=== PATIENT | male | born 1950 | race Caucasian/White ===

== ENCOUNTER 2017-10-10 06:00 | Inpatient (IN) ==
[2017-10-15] MEDS ORDERED: ZALEPLON 5 MG CAPSULE PO PRN (09:26)
[2017-10-15] MEDS ORDERED: SODIUM CHLORIDE 0.9% 1,000 ML IV SCH (09:30)
[2017-10-15 12:54] LABS: Basophils % 0.4 % (0.0-0.8); Eosinophils # 0.2 10*3/uL (0.0-0.87); Eosinophils % 2.9 % (0.00-10.9); Hematocrit 28.5 VOL% (42.0-52.0); Hemoglobin 8.9 GM/DL (14.0-18.0); Immature Granulocytes % 0.3 %; Immature Granulocytes Absolute 0.02 #; Lymphocytes # 1.2 10*3/uL (1.4-4.0); Lymphocytes % 17.4 % (21.2-54.2); Mean Corpuscular HGB Conc 31.2 GM/DL (32-36); Mean Corpuscular Hemoglobin 31 PG (27-34); Mean Corpuscular Volume 98.3 FL (87-102); Mean Platelet Volume 10.3 FL (9.6-12.0); Monocytes # 0.6 10*3/uL (0.11-0.8); Neutrophils # 4.9 10*3/uL (1.4-7.4); Platelet Count 214 T/CUMM (130-400); Red Cell Distribution Width 15.7 % (9.3-17.3); White Blood Count 6.8 T/CUMM (4-12)
[2017-10-15 13:05] LABS: INR 3.5
[2017-10-15 13:06] LABS: PT Patient Result 35.7 SECS
[2017-10-15 13:22] LABS: Albumin 3.2 G/DL (3.4-5.0); Bilirubin,Direct 0.19 MG/DL (0.0-0.20); Bilirubin,Indirect 0.6 MG/DL (0.0-1.0); Bilirubin,Total 0.8 MG/DL (0.2-1.0); Calcium 8.5 MG/DL (8.5-10.1); Osmolality,Calculated 286.7 MOS/KG (273-304); Potassium 5.1 MMOL/L (3.5-5.1)
[2017-10-15] MEDS: OXYBUTYNIN 5 MG TABLET PO SCH ×2 (15:14→20:48)
[2017-10-15] MEDS: POTASSIUM CHLORIDE 20 MEQ TABLET PO SCH ×2 (15:14→17:16)
[2017-10-15] MEDS: PANTOPRAZOLE 40 MG VIAL IV SCH (17:16)
[2017-10-15] MEDS ORDERED: PHYTONADIONE 5 MG/5 ML ORAL.SYR PO ONE (18:08)
[2017-10-15] MEDS: CARVEDILOL 6.25 MG TABLET PO SCH (20:48)
[2017-10-15] MEDS: ATORVASTATIN 40 MG TABLET PO SCH (20:48)
[2017-10-15] MEDS: TERAZOSIN 5 MG CAPSULE PO SCH (20:48)
[2017-10-16 06:17] LABS: Basophils % 0.4 % (0.0-0.8); Eosinophils # 0.3 10*3/uL (0.0-0.87); Hematocrit 28.8 VOL% (42.0-52.0); Immature Granulocytes % 0.2 %; Immature Granulocytes Absolute 0.01 #; Lymphocytes # 0.9 10*3/uL (1.4-4.0); Lymphocytes % 16.1 % (21.2-54.2); Mean Corpuscular HGB Conc 31.3 GM/DL (32-36); Mean Corpuscular Hemoglobin 30 PG (27-34); Mean Corpuscular Volume 96.6 FL (87-102); Mean Platelet Volume 10.6 FL (9.6-12.0); Monocytes # 0.7 10*3/uL (0.11-0.8); Monocytes % 12.4 % (1.7-12.7); Neutrophils # 3.7 10*3/uL (1.4-7.4); Neutrophils % 65.9 % (38.7-73.9); Platelet Count 203 T/CUMM (130-400); Red Blood Count 2.98 MC/CUMM (3.8-5.5); Red Cell Distribution Width 15.6 % (9.3-17.3); White Blood Count 5.6 T/CUMM (4-12)
[2017-10-16] MEDS: LEVOTHYROXINE 50 MCG TABLET PO SCH (06:24)
[2017-10-16 06:27] LABS: INR 2.4
[2017-10-16 06:43] LABS: Calcium 8.3 MG/DL (8.5-10.1); Potassium 4.5 MMOL/L (3.5-5.1)
[2017-10-16 06:48] LABS: Risk Ratio 1.76; VLDL CHOLESTEROL 9.6 MG/DL
[2017-10-16] MEDS: ISOSORBIDE MONONITRATE 30 MG TABLET PO SCH (09:20)
[2017-10-16] MEDS: POTASSIUM CHLORIDE 20 MEQ TABLET PO SCH ×2 (09:20→16:42)
[2017-10-16] MEDS: CARVEDILOL 6.25 MG TABLET PO SCH ×2 (09:20→20:26)
[2017-10-16] MEDS: FUROSEMIDE 20 MG TABLET PO SCH (09:20)
[2017-10-16] MEDS: AMIODARONE 200 MG TABLET PO SCH (09:20)
[2017-10-16] MEDS: SPIRONOLACTONE 25 MG TABLET PO SCH (09:20)
[2017-10-16] MEDS: LISINOPRIL 2.5 MG TABLET PO SCH (09:20)
[2017-10-16] MEDS: PANTOPRAZOLE 40 MG VIAL IV SCH (09:21)
[2017-10-16] MEDS: ASPIRIN EC 81 MG TABLET PO SCH (09:21)
[2017-10-16] MEDS: HEPARIN DRIP 25,000 UNITS/500 ML PREMIX IV SCH (09:41)
[2017-10-16] MEDS: FERROUS SULFATE 325 MG TABLET PO SCH (09:42)
[2017-10-16] MEDS: OXYBUTYNIN 5 MG TABLET PO SCH ×3 (09:42→20:36)
[2017-10-16] MEDS: ATORVASTATIN 40 MG TABLET PO SCH (20:26)
[2017-10-16] MEDS: TERAZOSIN 5 MG CAPSULE PO SCH (20:26)
[2017-10-16] MEDS ORDERED: MAGNESIUM CITRATE 300 ML BOTTLE PO ONE (21:00)
[2017-10-17 05:40] LABS: Basophils % 0.6 % (0.0-0.8); Eosinophils # 0.3 10*3/uL (0.0-0.87); Eosinophils % 5.7 % (0.00-10.9); Hematocrit 29.3 VOL% (42.0-52.0); Hemoglobin 9.3 GM/DL (14.0-18.0); Immature Granulocytes % 0.4 %; Immature Granulocytes Absolute 0.02 #; Lymphocytes # 1.1 10*3/uL (1.4-4.0); Lymphocytes % 20.2 % (21.2-54.2); Mean Corpuscular HGB Conc 31.7 GM/DL (32-36); Mean Corpuscular Hemoglobin 30 PG (27-34); Mean Corpuscular Volume 95.8 FL (87-102); Mean Platelet Volume 10.3 FL (9.6-12.0); Monocytes # 0.6 10*3/uL (0.11-0.8); Monocytes % 11.9 % (1.7-12.7); Neutrophils # 3.2 10*3/uL (1.4-7.4); Neutrophils % 61.2 % (38.7-73.9); Platelet Count 188 T/CUMM (130-400); Red Blood Count 3.06 MC/CUMM (3.8-5.5); Red Cell Distribution Width 15.6 % (9.3-17.3); White Blood Count 5.3 T/CUMM (4-12)
[2017-10-17 05:47] LABS: INR 1.3; PT Patient Result 13.9 SECS
[2017-10-17] MEDS: LEVOTHYROXINE 50 MCG TABLET PO SCH (06:12)
[2017-10-17] MEDS: BISACODYL 5 MG TABLET PO SCH ×3 (06:12→23:19)
[2017-10-17 06:18] LABS: Calcium 8.4 MG/DL (8.5-10.1); Osmolality,Calculated 293.8 MOS/KG (273-304); Potassium 4.5 MMOL/L (3.5-5.1)
[2017-10-17] MEDS: FERROUS SULFATE 325 MG TABLET PO SCH (09:45)
[2017-10-17] MEDS: CARVEDILOL 6.25 MG TABLET PO SCH ×2 (09:45→21:27)
[2017-10-17] MEDS: LISINOPRIL 2.5 MG TABLET PO SCH (09:45)
[2017-10-17] MEDS: SPIRONOLACTONE 25 MG TABLET PO SCH (09:45)
[2017-10-17] MEDS: AMIODARONE 200 MG TABLET PO SCH (09:45)
[2017-10-17] MEDS: FUROSEMIDE 20 MG TABLET PO SCH (09:46)
[2017-10-17] MEDS: OXYBUTYNIN 5 MG TABLET PO SCH ×3 (09:46→21:26)
[2017-10-17] MEDS: PANTOPRAZOLE 40 MG VIAL IV SCH (09:46)
[2017-10-17] MEDS: ASPIRIN EC 81 MG TABLET PO SCH (09:46)
[2017-10-17] MEDS: ISOSORBIDE MONONITRATE 30 MG TABLET PO SCH (09:46)
[2017-10-17] MEDS: POTASSIUM CHLORIDE 20 MEQ TABLET PO SCH ×3 (09:46→17:33)
[2017-10-17] MEDS: HEPARIN DRIP 25,000 UNITS/500 ML PREMIX IV SCH (10:21)
[2017-10-17] MEDS ORDERED: POLYETHYLENE GLYCOL POWDER 255 GM BOTTLE PO ONE (16:00)
[2017-10-17] MEDS: TERAZOSIN 5 MG CAPSULE PO SCH (21:26)
[2017-10-17] MEDS: ATORVASTATIN 40 MG TABLET PO SCH (21:26)
[2017-10-18 06:20] LABS: Basophils % 0.5 % (0.0-0.8); Eosinophils # 0.3 10*3/uL (0.0-0.87); Eosinophils % 5.2 % (0.00-10.9); Hematocrit 31.6 VOL% (42.0-52.0); Hemoglobin 9.9 GM/DL (14.0-18.0); Immature Granulocytes % 0.5 %; Immature Granulocytes Absolute 0.03 #; Lymphocytes # 1.2 10*3/uL (1.4-4.0); Mean Corpuscular HGB Conc 31.3 GM/DL (32-36); Mean Corpuscular Hemoglobin 30 PG (27-34); Mean Corpuscular Volume 95.8 FL (87-102); Mean Platelet Volume 10.7 FL (9.6-12.0); Monocytes # 0.6 10*3/uL (0.11-0.8); Monocytes % 10.1 % (1.7-12.7); Neutrophils # 4.1 10*3/uL (1.4-7.4); Neutrophils % 64.7 % (38.7-73.9); Platelet Count 204 T/CUMM (130-400); Red Cell Distribution Width 15.4 % (9.3-17.3); White Blood Count 6.3 T/CUMM (4-12)
[2017-10-18 06:22] LABS: INR 1.2; PT Patient Result 12.5 SECS; Partial Thromboplastin Time 29.4 SECS (0-40)
[2017-10-18] MEDS: LEVOTHYROXINE 50 MCG TABLET PO SCH (06:33)
[2017-10-18 06:42] LABS: Calcium 8.9 MG/DL (8.5-10.1)
[2017-10-18 06:43] LABS: Osmolality,Calculated 279.5 MOS/KG (273-304); Potassium 4.4 MMOL/L (3.5-5.1)
[2017-10-18] MEDS ORDERED: WARFARIN 5 MG TABLET PO ONE (09:00)
[2017-10-18] MEDS ORDERED: HEPARIN 5,000 UNIT/1 ML VIAL IV SCH (10:30)
[2017-10-18] MEDS: LISINOPRIL 2.5 MG TABLET PO SCH (10:55)
[2017-10-18] MEDS: CARVEDILOL 6.25 MG TABLET PO SCH ×2 (10:55→20:40)
[2017-10-18] MEDS: OXYBUTYNIN 5 MG TABLET PO SCH ×3 (10:56→20:40)
[2017-10-18] MEDS: SPIRONOLACTONE 25 MG TABLET PO SCH (10:56)
[2017-10-18] MEDS: AMIODARONE 200 MG TABLET PO SCH (10:56)
[2017-10-18] MEDS: FUROSEMIDE 20 MG TABLET PO SCH (10:56)
[2017-10-18] MEDS: POTASSIUM CHLORIDE 20 MEQ TABLET PO SCH ×3 (10:56→17:30)
[2017-10-18] MEDS: PANTOPRAZOLE 40 MG VIAL IV SCH (10:57)
[2017-10-18] MEDS: FERROUS SULFATE 325 MG TABLET PO SCH (10:57)
[2017-10-18] MEDS: ASPIRIN EC 81 MG TABLET PO SCH (10:57)
[2017-10-18] MEDS: ISOSORBIDE MONONITRATE 30 MG TABLET PO SCH (10:57)
[2017-10-18] MEDS: TERAZOSIN 5 MG CAPSULE PO SCH (20:39)
[2017-10-18] MEDS: HEPARIN DRIP 25,000 UNITS/500 ML PREMIX IV SCH (20:39)
[2017-10-18] MEDS: ATORVASTATIN 40 MG TABLET PO SCH (20:40)
[2017-10-18] MEDS: HEPARIN 5,000 UNIT/1 ML VIAL IV PRN (23:09)
[2017-10-19 04:29] LABS: Basophils % 0.3 % (0.0-0.8); Eosinophils # 0.3 10*3/uL (0.0-0.87); Eosinophils % 4.9 % (0.00-10.9); Hematocrit 28.4 VOL% (42.0-52.0); Hemoglobin 9.2 GM/DL (14.0-18.0); Immature Granulocytes % 0.3 %; Immature Granulocytes Absolute 0.02 #; Lymphocytes # 1.2 10*3/uL (1.4-4.0); Lymphocytes % 20.1 % (21.2-54.2); Mean Corpuscular HGB Conc 32.4 GM/DL (32-36); Mean Corpuscular Hemoglobin 31 PG (27-34); Mean Corpuscular Volume 94.4 FL (87-102); Mean Platelet Volume 10.2 FL (9.6-12.0); Monocytes # 0.8 10*3/uL (0.11-0.8); Monocytes % 12.6 % (1.7-12.7); Neutrophils # 3.7 10*3/uL (1.4-7.4); Neutrophils % 61.8 % (38.7-73.9); Platelet Count 179 T/CUMM (130-400); Red Blood Count 3.01 MC/CUMM (3.8-5.5); Red Cell Distribution Width 15.4 % (9.3-17.3)
[2017-10-19 04:41] LABS: INR 1.3; PT Patient Result 13.4 SECS
[2017-10-19 04:55] LABS: Calcium 8.7 MG/DL (8.5-10.1)
[2017-10-19 04:56] LABS: Osmolality,Calculated 283.4 MOS/KG (273-304); Potassium 4.2 MMOL/L (3.5-5.1)
[2017-10-19] MEDS: LEVOTHYROXINE 50 MCG TABLET PO SCH (06:00)
[2017-10-19] MEDS: HEPARIN 5,000 UNIT/1 ML VIAL IV PRN ×2 (06:58→13:57)
[2017-10-19] MEDS: CARVEDILOL 6.25 MG TABLET PO SCH ×2 (09:37→20:37)
[2017-10-19] MEDS: ISOSORBIDE MONONITRATE 30 MG TABLET PO SCH (09:37)
[2017-10-19] MEDS: OXYBUTYNIN 5 MG TABLET PO SCH ×3 (09:37→20:37)
[2017-10-19] MEDS: SPIRONOLACTONE 25 MG TABLET PO SCH (09:37)
[2017-10-19] MEDS: FERROUS SULFATE 325 MG TABLET PO SCH (09:37)
[2017-10-19] MEDS: FUROSEMIDE 20 MG TABLET PO SCH (09:37)
[2017-10-19] MEDS: AMIODARONE 200 MG TABLET PO SCH (09:37)
[2017-10-19] MEDS: ASPIRIN EC 81 MG TABLET PO SCH (09:37)
[2017-10-19] MEDS: PANTOPRAZOLE 40 MG VIAL IV SCH (09:38)
[2017-10-19] MEDS: POTASSIUM CHLORIDE 20 MEQ TABLET PO SCH ×3 (09:38→18:09)
[2017-10-19] MEDS: LISINOPRIL 2.5 MG TABLET PO SCH (09:38)
[2017-10-19] MEDS ORDERED: WARFARIN 7.5 MG TABLET PO ONE (10:05)
[2017-10-19] MEDS: HEPARIN DRIP 25,000 UNITS/500 ML PREMIX IV SCH (16:58)
[2017-10-19] MEDS ORDERED: WARFARIN 4 MG TABLET PO SCH (18:00)
[2017-10-19] MEDS: TERAZOSIN 5 MG CAPSULE PO SCH (20:37)
[2017-10-19] MEDS: ATORVASTATIN 40 MG TABLET PO SCH (20:38)
[2017-10-20] MEDS: LEVOTHYROXINE 50 MCG TABLET PO SCH (05:48)
[2017-10-20 05:58] LABS: Basophils % 0.5 % (0.0-0.8); Eosinophils # 0.4 10*3/uL (0.0-0.87); Hematocrit 27.6 VOL% (42.0-52.0); Hemoglobin 8.7 GM/DL (14.0-18.0); Immature Granulocytes % 0.3 %; Immature Granulocytes Absolute 0.02 #; Lymphocytes # 1.5 10*3/uL (1.4-4.0); Mean Corpuscular HGB Conc 31.5 GM/DL (32-36); Mean Corpuscular Hemoglobin 31 PG (27-34); Mean Corpuscular Volume 96.8 FL (87-102); Monocytes # 0.9 10*3/uL (0.11-0.8); Monocytes % 13.4 % (1.7-12.7); Neutrophils # 3.6 10*3/uL (1.4-7.4); Neutrophils % 56.8 % (38.7-73.9); Platelet Count 183 T/CUMM (130-400); Red Blood Count 2.85 MC/CUMM (3.8-5.5); Red Cell Distribution Width 15.5 % (9.3-17.3); White Blood Count 6.4 T/CUMM (4-12)
[2017-10-20 06:07] LABS: INR 2.2; PT Patient Result 22.9 SECS
[2017-10-20 06:27] LABS: Calcium 8.6 MG/DL (8.5-10.1); Osmolality,Calculated 284.3 MOS/KG (273-304); Potassium 3.8 MMOL/L (3.5-5.1)
[2017-10-20] MEDS: HEPARIN DRIP 25,000 UNITS/500 ML PREMIX IV SCH (09:08)
[2017-10-20] MEDS: CARVEDILOL 6.25 MG TABLET PO SCH (09:29)
[2017-10-20] MEDS: LISINOPRIL 2.5 MG TABLET PO SCH (09:29)
[2017-10-20] MEDS: ISOSORBIDE MONONITRATE 30 MG TABLET PO SCH (09:29)
[2017-10-20] MEDS: FUROSEMIDE 20 MG TABLET PO SCH (09:29)
[2017-10-20] MEDS: PANTOPRAZOLE 40 MG VIAL IV SCH (09:29)
[2017-10-20] MEDS: SPIRONOLACTONE 25 MG TABLET PO SCH (09:29)
[2017-10-20] MEDS: FERROUS SULFATE 325 MG TABLET PO SCH (09:29)
[2017-10-20] MEDS: POTASSIUM CHLORIDE 20 MEQ TABLET PO SCH (09:29)
[2017-10-20] MEDS: OXYBUTYNIN 5 MG TABLET PO SCH (09:29)
[2017-10-20] MEDS: ASPIRIN EC 81 MG TABLET PO SCH (09:29)
[2017-10-20] MEDS: AMIODARONE 200 MG TABLET PO SCH (09:29)
[2017-10-20 10:40] VITALS: BP 89/53
== END 2017-10-20 10:15 | disposition home or self-care (01) | DRG 379 ==
LOC: EDSTATUS 06:00 → SUATTDRO 10-15 07:43 → N.4E 10-15 10:49
PROVIDERS: ADMIT Internal Medicine Gastroenterology; ATTEND Internal Medicine